=== PATIENT | male | born 1975 | race Two or more races ===

== ENCOUNTER → 2020-06-08 | Outpatient (CLI) | payer OTHER ==
[2020-06-08 08:33] LABS: Basophils # (auto) 0.1 10 ^3/uL (0-0.2); Basophils % (auto) 0.9 % (0.0-2.0); Eosinophils # (auto) 0.2 10 ^3/uL (0-0.8); Eosinophils % (auto) 2.6 % (0.0-7.0); Hematocrit 47.6 % (41.0-53.0); Lymphocytes # (auto) 1.3 10 ^3/uL (0.4-5.4); Lymphocytes % (auto) 19.9 % (10.0-50.0); Mean Corpuscular Hgb Conc. 33.5 g/dL (32.0-36.0); Mean Corpuscular Volume 89.7 fL (80.0-100.0); Monocytes # (auto) 0.4 10 ^3/uL (0-1.3); Monocytes % (auto) 7.1 % (0.0-12.0); Neutrophils # (auto) 4.4 10 ^3/uL (1.6-8.6); Neutrophils % (auto) 69.5 % (37.0-80.0); Nucleated Red Blood Cells % 0.1 %; Platelet Count (auto) 262 10^3/uL (140-450); Red Blood Cells 5.31 10^6/uL (4.5-5.90); Red Cell Distribution Width 13.1 % (11.8-14.3); White Blood Cell 6.3 10^3/uL (4.4-10.8)
[2020-06-08 10:02] LABS: Albumin 3.7 g/dL (3.4-5.0); BUN/Creatinine Ratio 13.3; Bilirubin, Total 0.5 mg/dL (0.2-1.0); Calcium 8.8 mg/dL (8.5-10.1); Total Protein 7.8 g/dL (6.4-8.2)
== END | disposition home or self-care (01) ==
LOC: LAB 07:59
PROVIDERS: ATTEND Physician Assistant
DX: E66.8 Other obesity (principal); R03.0 Elevated blood-pressure reading, without diagnosis of hypertension; R09.02 Hypoxemia; Z83.3 Family history of diabetes mellitus
CPT/HCPCS: 36415; 80053; 80061; 85025

== ENCOUNTER → 2025-03-17 | Outpatient (CLI) | payer OTHER ==
[2025-03-17 07:34] LABS: Hematocrit 44.7 % (41.0-53.0); Hemoglobin 15.5 g/dL (13.5-17.5); Mean Corpuscular Hemoglobin 31.0 pg (28.0-32.0); Mean Corpuscular Volume 89.5 fL (80.0-100.0); Nucleated Red Blood Cells % 0.0 %
[2025-03-17 07:38] LABS: Urine Protein, UAD Negative (Negative)
[2025-03-17 07:55] LABS: Alanine Aminotransferase 14 U/L (7-40); Albumin 4.2 g/dL (3.2-4.8); Alkaline Phosphatase 80 U/L (46-116); Anion Gap 8 (5-15); BUN/Creatinine Ratio 10.7 (10.0-20.0); Blood Urea Nitrogen 11 mg/dL (9-23); Calcium 9.0 mg/dL (8.7-10.4); Carbon Dioxide 27 mmol/L (20-31); Chloride 105 mmol/L (98-107); Glucose 98 mg/dL (74-106); Potassium 3.9 mmol/L (3.5-5.1); Sodium 140 mmol/L (136-145); Total Protein 7.0 g/dL (5.7-8.2); Triglycerides 142 mg/dL (< 150)
[2025-03-17 07:56] LABS: Bilirubin, Total 1.0 mg/dL (0.2-1.0); Cholesterol 161 mg/dL (< 200)
[2025-03-17 08:00] LABS: HDL Cholesterol 35 mg/dL (40-59)
== END | disposition home or self-care (01) ==
LOC: LAB 07:10
PROVIDERS: ATTEND Nurse Practitioner Family
DX: R73.03 Prediabetes (principal); E66.9 Obesity, unspecified
CPT/HCPCS: 36415; 80053; 80061; 81001; 83036; 84443; 85025